=== PATIENT | male | born 1980 | race African-American/Black ===

== ENCOUNTER 2019-02-17 23:57 | Emergency (ER) | payer MEDICAID ==
[~2019-02-17] VITALS: Ht 185.4 cm; Wt 120.2 kg
[~2019-02-17 23:57] MED LIST: ALPR-229; CYCL1TAB18; HYDR500C14; NAPR500T31; OXYC30TA50
[2019-02-18 00:26] VITALS: BP 135/99
[2019-02-18] MEDS ORDERED: IBUPROFEN 800 MG TAB PO ONE (02:45)
[2019-02-18] MEDS ORDERED: HYDROcodone-ACET 10/325MG TAB PO ONE (02:45)
== END 2019-02-18 09:00 | disposition home or self-care (01) ==
LOC: ER 02-18 00:03 → MERGE 02-18 00:03 → ER 02-18 09:00
DX: S93.401A Sprain of unspecified ligament of right ankle, initial encounter (principal); W19.XXXA Unspecified fall, initial encounter; Y93.89 Activity, other specified; Y92.89 Other specified places as the place of occurrence of the external cause; Y99.8 Other external cause status
CPT/HCPCS: 29505; 73610

== ENCOUNTER 2019-04-11 06:12 | Emergency (ER) | payer MEDICAID ==
[~2019-04-11] VITALS: Ht 185.4 cm; Wt 122.5 kg
[~2019-04-11 06:12] MED LIST changes: -ALPR-229; +ALPR2TAB6
[2019-04-11 07:09] VITALS: BP 142/95
[2019-04-11] MEDS ORDERED: ACETAMINOPHEN/CODEINE#3 (300/30mg) TAB PO ONE (08:00)
[2019-04-11] MEDS ORDERED: cefTRIAXone SOD 1,000 MG VL IM ONE (08:30)
== END 2019-04-11 08:36 | disposition home or self-care (01) ==
LOC: ER 06:12
DX: M25.561 Pain in right knee (principal); H70.91 Unspecified mastoiditis, right ear; R51 Headache; R42 Dizziness and giddiness; R55 Syncope and collapse; J45.909 Unspecified asthma, uncomplicated; E11.9 Type 2 diabetes mellitus without complications; I10 Essential (primary) hypertension; F17.210 Nicotine dependence, cigarettes, uncomplicated; Z79.899 Other long term (current) drug therapy; W10.8XXA Fall (on) (from) other stairs and steps, initial encounter; Y93.89 Activity, other specified; Y92.89 Other specified places as the place of occurrence of the external cause; Y99.8 Other external cause status
CPT/HCPCS: 70450; 73562; 96372; 99284; J0696

== ENCOUNTER 2020-06-15 09:00 | Emergency (ER) | payer MEDICAID ==
[~2020-06-15] VITALS: Ht 185.4 cm; Wt 111.1 kg
[~2020-06-15 09:00] MED LIST changes: +CYCL10TA6; -CYCL1TAB18
[2020-06-15 09:26] LABS: Basophils # (auto) 0 10 ^3/uL (0-0.2); Basophils % (auto) 0.6 % (0.0-2.0); Eosinophils # (auto) 0.1 10 ^3/uL (0-0.8); Hemoglobin 16.5 g/dL (13.5-17.5); Lymphocytes # (auto) 2.4 10 ^3/uL (0.4-5.4); Lymphocytes % (auto) 32.1 % (10.0-50.0); Mean Corpuscular Hemoglobin 33.2 pg (28.0-32.0); Mean Corpuscular Volume 94.8 fL (80.0-100.0); Monocytes % (auto) 13.6 % (0.0-12.0); Neutrophils % (auto) 52.7 % (37.0-80.0); Nucleated Red Blood Cells % 0.1 %; Platelet Count (auto) 280 10^3/uL (140-450); Red Blood Cells 4.96 10^6/uL (4.5-5.90); Red Cell Distribution Width 13.8 % (11.8-14.3); White Blood Cell 7.6 10^3/uL (4.4-10.8)
[2020-06-15 09:30] VITALS: BP 158/109
[2020-06-15] MEDS ORDERED: ASPirin 81 mg TAB PO ONE (09:30)
[2020-06-15] MEDS ORDERED: SODIUM CHLORIDE 0.9% 1,000 ML IV ONE (09:30)
[2020-06-15 09:45] LABS: Alanine Aminotransferase 35 U/L (16-61); Albumin 3.9 g/dL (3.4-5.0); Anion Gap 11 (5-15); Blood Urea Nitrogen 9 mg/dL (7-18); Calcium 9.2 mg/dL (8.5-10.1); Carbon Dioxide 24 mmol/L (21-32); Chloride 105 mmol/L (98-107); Glucose 139 mg/dL (74-106); Potassium 3.4 mmol/L (3.5-5.1); Sodium 140 mmol/L (136-145)
[2020-06-15 09:50] LABS: Alkaline Phosphatase 60 U/L (45-117); Aspartate Aminotransferase 21 U/L (15-37); BUN/Creatinine Ratio 9.4; Bilirubin, Total 0.6 mg/dL (0.2-1.0); GFR African American 111 mL/min; GFR Non-African American 92 mL/min; Total Protein 8.3 g/dL (6.4-8.2)
[2020-06-15] MEDS ORDERED: POTASSIUM EFFERVESENT TAB 25 MEQ PO ONE (10:45)
== END 2020-06-15 10:40 | disposition left against medical advice (07) ==
LOC: ER 09:00
DX: E87.6 Hypokalemia (principal); E11.65 Type 2 diabetes mellitus with hyperglycemia; F17.210 Nicotine dependence, cigarettes, uncomplicated; I10 Essential (primary) hypertension; F12.10 Cannabis abuse, uncomplicated; J45.909 Unspecified asthma, uncomplicated
CPT/HCPCS: 36415; 80053; 84484; 85025; 93005; 99284; J7030

== ENCOUNTER 2023-03-11 15:22 | Emergency (ER) | payer MEDICAID ==
[~2023-03-11] VITALS: Ht 177.8 cm; Wt 113.6 kg
[~2023-03-11 15:22] MED LIST changes: +CYCL-839; -CYCL10TA6; +NAPR-746; -NAPR500T31
[2023-03-11] MEDS ORDERED: NALOXONE HCL 1MG/ML 2ML SYRINGE IV ONE (15:23)
[2023-03-11] MEDS ORDERED: SODIUM BICARBONATE 8.4% INJ 50ML SYRINGE IV ONE (15:23)
[2023-03-11] MEDS ORDERED: CALCIUM CHLOR(10%) 100MG/ML 10ML SYRINGE IV ONE (15:23)
[2023-03-11 15:26] VITALS: BP 0/0; RESP 0; O2SAT 0
[2023-03-11 15:29] VITALS: PULSE 0
== END 2023-03-11 23:00 ==
LOC: EDBD 15:22 → ER 15:22 → EDUNIT# 15:22 → ER 23:00
DX: I46.9 Cardiac arrest, cause unspecified (principal); I10 Essential (primary) hypertension; E11.9 Type 2 diabetes mellitus without complications; J45.909 Unspecified asthma, uncomplicated; F17.210 Nicotine dependence, cigarettes, uncomplicated; F15.90 Other stimulant use, unspecified, uncomplicated; Z79.899 Other long term (current) drug therapy
CPT/HCPCS: 31500; 92950; 99285; J2310